=== PATIENT | male | born 1945 | race Caucasian/White ===

== ENCOUNTER 2022-08-15 13:17 | Emergency (ER) | payer MEDICARE, BC ==
[2022-08-15 14:00] VITALS: BP 165/80; PULSE 84
[2022-08-15] MEDS ORDERED: Meclizine 25 MG Tab PO ONE (14:09)
== END 2022-08-15 14:24 | disposition home or self-care (01) ==
LOC: JP.ED 13:17
DX: H91.93 Unspecified hearing loss, bilateral (principal); H93.13 Tinnitus, bilateral; R03.0 Elevated blood-pressure reading, without diagnosis of hypertension; Z88.0 Allergy status to penicillin
CPT/HCPCS: 99283; A9270-GY

== ENCOUNTER 2023-11-23 23:02 | Emergency (ER) | payer MEDICARE, BC ==
[2023-11-23 23:16] VITALS: PULSE 83
[2023-11-24 00:41] VITALS: BP 148/80
[2023-11-24] MEDS: Famotidine 20 MG Tab PO ONE (00:41)
== END 2023-11-24 00:46 | disposition home or self-care (01) ==
LOC: JP.ED 23:02
DX: K21.9 Gastro-esophageal reflux disease without esophagitis (principal); Z88.0 Allergy status to penicillin
CPT/HCPCS: 99283; A9270

== ENCOUNTER 2024-03-04 22:37 | Emergency (ER) | payer MEDICARE, BC ==
[2024-03-04] MEDS: Alum Hydrox/Mag Hydrox/Simeth 15 ML, Lidocaine 2% 15 ML PO ONE (23:04)
[2024-03-04 23:10] LABS: BASOPHILS PERCENT AUTO 0.2 % (0.1-1.3); EOSINOPHILS ABSOLUTE AUTO 0.05 K/uL (0.00-0.40); EOSINOPHILS PERCENT AUTO 0.5 % (0.0-5.4); HEMATOCRIT 47.3 % (38.4-49.7); HEMOGLOBIN 16.6 g/dL (12.9-16.9); IMMATURE GRAN PERCENT AUTO 0.2 % (0.0-0.7); LYMPHOCYTES ABSOLUTE AUTO 1.65 K/uL (0.8-3.3); LYMPHOCYTES PERCENT AUTO 16.4 % (11.4-47.7); MEAN CORPUSCULAR HEMOGLOBIN 31.4 pg (31.6-35.5); MEAN CORPUSCULAR HGB CONC 35.1 g/dL (31.6-35.5); MEAN CORPUSCULAR VOLUME 89.6 fL (81.4-99.0); MONOCYTES ABSOLUTE AUTO 0.74 K/uL (0.20-0.90); MONOCYTES PERCENT AUTO 7.3 % (3.3-12.6); NEUTROPHILS PERCENT AUTO 75.4 % (40.0-78.1); PLATELET COUNT,PLT 165 K/uL (130-375); RED BLOOD CELL COUNT 5.28 M/uL (4.14-5.76); WHITE BLOOD CELL COUNT,WBC 10.1 K/uL (3.2-11.0)
[2024-03-04 23:11] LABS: BASOPHILS ABSOLUTE AUTO 0.02 K/uL (0.00-0.10); IMMATURE GRAN ABSOLUTE AUTO 0.02 K/uL (0.00-0.23)
[2024-03-04 23:33] LABS: A/G RATIO 1.1 (1.2-2.2); ALANINE AMINOTRANSFERASE,ALT 128 U/L (12-78); ALBUMIN 3.8 g/dL (3.4-5.0); ALKALINE PHOSPHATASE 87 U/L (46-116); ANION GAP 9.9 mmol/L (5.0-14.0); ASPARTATE AMNIOTRANSFERASE,AST 161 U/L (15-37); BILIRUBIN TOTAL 2.3 mg/dL (0.2-1.0); BLOOD UREA NITROGEN,BUN 15 mg/dL (7-18); CALCIUM 9.2 mg/dL (8.5-10.1); CARBON DIOXIDE,CO2 29 mmol/L (21-32); CHLORIDE,CL 104 mmol/L (100-108); CREATININE 1.1 mg/dL (0.8-1.3); EST CRCL DRUG DOSING (CG) 53.55 mL/min; ESTIMATED GFR 69 mL/min (>60); GLUCOSE RANDOM 148 mg/dL (74-106); POTASSIUM,K 3.9 mmol/L (3.6-5.2); PROTEIN TOTAL,TP 7.3 g/dL (6.4-8.2); SODIUM,NA 143 mmol/L (140-148); TROPONIN I HIGH SENSITIVITY 5.5 pg/mL (<=60.3)
[2024-03-04] MEDS: Sodium Chloride 0.9% 10 ML Syringe FLUSH PRN (23:47)
[2024-03-04] MEDS: HYDROmorphone 0.5 MG/0.5 ML Syringe IVPUSH ONE (23:47)
[2024-03-05] MEDS: Sodium Chloride 0.9% 10 ML Syringe FLUSH PRN (00:09)
[2024-03-05] MEDS: Sodium Chloride 0.9% 80 ML IV ONE (00:09)
[2024-03-05] MEDS: Iopamidol 612 MG/ML 100 ML Bottle IV PRN (00:09)
[2024-03-05 00:17] VITALS: BP 161/78; PULSE 84
== END 2024-03-05 01:11 | disposition home or self-care (01) ==
LOC: JP.ED 22:37
DX: K81.0 Acute cholecystitis (principal); Z88.0 Allergy status to penicillin
CPT/HCPCS: 36415; 74177; 80053; 84484; 85025; 93005; 96374; 99284; A9270; J1171; J3490; Q9967; 93010

== ENCOUNTER 2024-03-24 21:40 | Inpatient (IN) | payer MEDICARE, BC ==
[2024-03-24 22:23] LABS: BASOPHILS ABSOLUTE AUTO 0.05 K/uL (0.00-0.10); BASOPHILS PERCENT AUTO 0.4 % (0.1-1.3); EOSINOPHILS ABSOLUTE AUTO 0.21 K/uL (0.00-0.40); EOSINOPHILS PERCENT AUTO 1.8 % (0.0-5.4); HEMATOCRIT 47.5 % (38.4-49.7); HEMOGLOBIN 16.1 g/dL (12.9-16.9); IMMATURE GRAN ABSOLUTE AUTO 0.05 K/uL (0.00-0.23); IMMATURE GRAN PERCENT AUTO 0.4 % (0.0-0.7); LYMPHOCYTES ABSOLUTE AUTO 3.23 K/uL (0.8-3.3); LYMPHOCYTES PERCENT AUTO 26.9 % (11.4-47.7); MEAN CORPUSCULAR HEMOGLOBIN 30.6 pg (31.6-35.5); MEAN CORPUSCULAR HGB CONC 33.9 g/dL (31.6-35.5); MEAN CORPUSCULAR VOLUME 90.1 fL (81.4-99.0); MONOCYTES ABSOLUTE AUTO 0.83 K/uL (0.20-0.90); MONOCYTES PERCENT AUTO 6.9 % (3.3-12.6); NEUTROPHILS ABSOLUTE AUTO 7.63 K/uL (1.0-7.6); NEUTROPHILS PERCENT AUTO 63.6 % (40.0-78.1); PLATELET COUNT,PLT 212 K/uL (130-375); RED BLOOD CELL COUNT 5.27 M/uL (4.14-5.76)
[2024-03-24] MEDS: HYDROmorphone 0.5 MG/0.5 ML Syringe IVPUSH ONE (22:29)
[2024-03-24] MEDS: Sodium Chloride 0.9% 1,000 ML IV SCH (22:30)
[2024-03-24 22:49] LABS: ALANINE AMINOTRANSFERASE,ALT 150 U/L (12-78); ALBUMIN 3.5 g/dL (3.4-5.0); ALKALINE PHOSPHATASE 84 U/L (46-116); ANION GAP 8.4 mmol/L (5.0-14.0); ASPARTATE AMNIOTRANSFERASE,AST 190 U/L (15-37); BILIRUBIN TOTAL 1.9 mg/dL (0.2-1.0); BLOOD UREA NITROGEN,BUN 14 mg/dL (7-18); CALCIUM 9.1 mg/dL (8.5-10.1); CARBON DIOXIDE,CO2 29 mmol/L (21-32); CHLORIDE,CL 104 mmol/L (100-108); CREATININE 1.1 mg/dL (0.8-1.3); EST CRCL DRUG DOSING (CG) 53.55 mL/min; ESTIMATED GFR 69 mL/min (>60); GLUCOSE RANDOM 143 mg/dL (74-106); POTASSIUM,K 4.6 mmol/L (3.6-5.2); PROTEIN TOTAL,TP 6.9 g/dL (6.4-8.2); SODIUM,NA 141 mmol/L (140-148)
[2024-03-24 23:00] LABS: C-REACTIVE PROTEIN < 0.50 mg/dL (<0.50)
[2024-03-24] MEDS: Meropenem 500 MG in Sodium Chloride 0.9% 50 ML IV ONE (23:33)
[2024-03-25] MEDS ORDERED: Ondansetron 4 MG Tab.DIS PO PRN (01:06)
[2024-03-25] MEDS ORDERED: Sennosides/Docusate Sodium 50-8.6 MG Tab PO PRN (01:06)
[2024-03-25] MEDS ORDERED: Naloxone 0.4 MG/ML SDV IVPUSH PRN (01:06)
[2024-03-25] MEDS ORDERED: fentaNYL 100 MCG/2 ML SDV IVPUSH PRN (01:06)
[2024-03-25] MEDS ORDERED: Nicotine 14 MG/24 Hr Patch TRDERM PRN (01:06)
[2024-03-25] MEDS ORDERED: Ondansetron 4 MG/2 ML SDV IV PRN (01:06)
[2024-03-25] MEDS ORDERED: Melatonin 3 MG Tab PO PRN (01:06)
[2024-03-25] MEDS: Pantoprazole 40 MG Vial IV SCH (01:41)
[2024-03-25] MEDS: Sodium Chloride 0.9% 1,000 ML IV SCH (01:45)
[2024-03-25] MEDS: Acetaminophen 325 MG Tab PO PRN (02:27)
[2024-03-25 05:19] LABS: HEMATOCRIT 44.5 % (38.4-49.7); HEMOGLOBIN 15.3 g/dL (12.9-16.9); MEAN CORPUSCULAR HEMOGLOBIN 30.3 pg (31.6-35.5); MEAN CORPUSCULAR HGB CONC 34.4 g/dL (31.6-35.5); MEAN CORPUSCULAR VOLUME 88.1 fL (81.4-99.0); RED BLOOD CELL COUNT 5.05 M/uL (4.14-5.76); WHITE BLOOD CELL COUNT,WBC 15.9 K/uL (3.2-11.0)
[2024-03-25 05:32] LABS: ANION GAP 8.5 mmol/L (5.0-14.0); CALCIUM 8.9 mg/dL (8.5-10.1); CREATININE 1.2 mg/dL (0.8-1.3); EST CRCL DRUG DOSING (CG) 49.08 mL/min; POTASSIUM,K 4.4 mmol/L (3.6-5.2)
[2024-03-25] MEDS ORDERED: fentaNYL 50 MCG/ML SDV IVPUSH PRN (06:49)
[2024-03-25] MEDS: Meropenem 500 MG in Sodium Chloride 0.9% 50 ML IV SCH (07:10)
[2024-03-25 08:36] LABS: A/G RATIO 1.1 (1.2-2.2); ALBUMIN 3.3 g/dL (3.4-5.0); BILIRUBIN DIRECT 2.27 mg/dL (0.0-0.2); BILIRUBIN INDIRECT 0.83; BILIRUBIN TOTAL 3.1 mg/dL (0.2-1.0); PROTEIN TOTAL,TP 6.4 g/dL (6.4-8.2)
[2024-03-25] MEDS: Lactobacillus Rhamnosus GG (Probiotic) Cap PO SCH (09:13)
[2024-03-25] MEDS ORDERED: Rocuronium 50 MG/5 ML Vial ONE (10:11)
[2024-03-25] MEDS ORDERED: Neostigmine Methylsulfate 10 MG/10 ML MDV ONE (10:11)
[2024-03-25] MEDS ORDERED: Succinylcholine 200 MG/10 ML MDV ONE (10:11)
[2024-03-25] MEDS ORDERED: Dexamethasone 4 MG/ML SDV ONE (10:11)
[2024-03-25] MEDS ORDERED: Ondansetron 4 MG/2 ML SDV ONE (10:11)
[2024-03-25] MEDS ORDERED: Glycopyrrolate 0.2 MG/ML 5 ML MDV ONE (10:11)
[2024-03-25] MEDS ORDERED: Propofol 200 MG/20 ML SDV ONE (10:11)
[2024-03-25] MEDS ORDERED: fentaNYL 250 MCG/5 ML SDV ONE (10:14)
[2024-03-25] MEDS: Indocyanine Green 25 MG SDV IV ONE (11:16)
[2024-03-25] MEDS: NICOTINE PATCH CHECK TOP SCH (11:54)
[2024-03-25] MEDS ORDERED: fentaNYL 100 MCG/2 ML SDV ONE (12:07)
[2024-03-25] MEDS: Bupivacaine 0.25%/EPINEPHrine 1:200,000 30 ML SDV ONE (12:23)
[2024-03-25] MEDS ORDERED: Glucagon,Human Recombinant 1 MG Vial ONE (12:52)
[2024-03-25] MEDS ORDERED: Lactated Ringers 1,000 ML ONE (12:54)
[2024-03-25] MEDS ORDERED: oxyCODONE 5 MG Tab PO PRN (14:59)
[2024-03-26 05:39] LABS: BASOPHILS PERCENT AUTO 0.2 % (0.1-1.3); EOSINOPHILS PERCENT AUTO 0.1 % (0.0-5.4); HEMATOCRIT 41.9 % (38.4-49.7); HEMOGLOBIN 14.2 g/dL (12.9-16.9); IMMATURE GRAN ABSOLUTE AUTO 0.06 K/uL (0.00-0.23); IMMATURE GRAN PERCENT AUTO 0.5 % (0.0-0.7); LYMPHOCYTES ABSOLUTE AUTO 0.91 K/uL (0.8-3.3); LYMPHOCYTES PERCENT AUTO 6.9 % (11.4-47.7); MEAN CORPUSCULAR HEMOGLOBIN 30.5 pg (31.6-35.5); MEAN CORPUSCULAR HGB CONC 33.9 g/dL (31.6-35.5); MEAN CORPUSCULAR VOLUME 90.1 fL (81.4-99.0); MONOCYTES ABSOLUTE AUTO 1.06 K/uL (0.20-0.90); NEUTROPHILS ABSOLUTE AUTO 11.19 K/uL (1.0-7.6); NEUTROPHILS PERCENT AUTO 84.3 % (40.0-78.1); PLATELET COUNT,PLT 155 K/uL (130-375); RED BLOOD CELL COUNT 4.65 M/uL (4.14-5.76); WHITE BLOOD CELL COUNT,WBC 13.3 K/uL (3.2-11.0)
[2024-03-26 05:46] LABS: BASOPHILS ABSOLUTE AUTO 0.02 K/uL (0.00-0.10); EOSINOPHILS ABSOLUTE AUTO 0.01 K/uL (0.00-0.40)
[2024-03-26 06:11] LABS: CALCIUM 8.5 mg/dL (8.5-10.1); CREATININE 1.3 mg/dL (0.8-1.3); EST CRCL DRUG DOSING (CG) 45.31 mL/min; POTASSIUM,K 4.3 mmol/L (3.6-5.2)
[2024-03-26 06:14] LABS: ANION GAP 13.3 mmol/L (5.0-14.0)
[2024-03-26 06:15] LABS: PROTEIN TOTAL,TP 6.3 g/dL (6.4-8.2)
[2024-03-26 06:16] LABS: A/G RATIO 0.9 (1.2-2.2); BILIRUBIN DIRECT 4.21 mg/dL (0.0-0.2); BILIRUBIN INDIRECT 1.29; BILIRUBIN TOTAL 5.5 mg/dL (0.2-1.0)
[2024-03-26] MEDS: metroNIDAZOLE/Normal Saline 500 MG in Premix Bag 1 BAG IV SCH (12:20)
[2024-03-26] MEDS ORDERED: Ciprofloxacin in D5W 400 MG in Premix Bag 1 BAG IV SCH (13:00)
[2024-03-26 16:49] VITALS: BP 125/88; PULSE 60
== END 2024-03-26 15:55 | DRG 419 ==
LOC: JP.ED 21:40 → JP.MS 03-25 00:23 → OBSVTOIN 03-25 13:51
PROVIDERS: ADMIT Registered Nurse; ATTEND Hospitalist
PROC: BF03YZZ Plain Radiography of Gallbladder and Bile Ducts using Other Contrast (ICD-10-PCS; 2024-03-25)
PROC: 0FT44ZZ Resection of Gallbladder, Percutaneous Endoscopic Approach (ICD-10-PCS; principal; 2024-03-25 11:45)
DX: K80.01 Calculus of gallbladder with acute cholecystitis with obstruction (principal); K80.63 Calculus of gallbladder and bile duct with acute cholecystitis with obstruction; H91.90 Unspecified hearing loss, unspecified ear; E78.00 Pure hypercholesterolemia, unspecified; K21.9 Gastro-esophageal reflux disease without esophagitis; F17.210 Nicotine dependence, cigarettes, uncomplicated; D72.829 Elevated white blood cell count, unspecified; Z88.0 Allergy status to penicillin; Z87.81 Personal history of (healed) traumatic fracture
CPT/HCPCS: 36415 ×2; 71046; 80048; 80053; 80076; 83690; 85025; 85027; 86140; 93010; 99222; A9270; J0330; J1100; J1171; J1596; J1610; J2185 ×3; J2405; J2470; J2704; J2710; J3010 ×2; J3490 ×3; J7030 ×3; J7120; 00790-QZ; 76000; 88304; 96361; 96365; 96375; 96376; 99231; 99238; 99285; 99285-25; C1894; G0378